=== PATIENT | female | born 1940 | race Caucasian/White ===

== ENCOUNTER → 2023-07-12 06:35 | Outpatient (REF) | payer MEDICARE, BC, SELFPAY ==
[2023-07-12 07:13] LABS: % Basophils 0.6 % (0-2); % Eosinophils 1.3 % (0-6); % Immature Granulocytes 0.1 % (0-0.5); % Lymphocytes 18.3 % (20.5-51.1); % Monocytes 5.6 % (1.7-9.3); % Neutrophils 74.1 % (42.2-75.2); Absolute Eosinophils 0.1 10^3/uL (0-0.7); Absolute Lymphocytes 1.3 10^3/uL (1.2-3.4); Absolute Monocytes 0.4 10^3/uL (0.1-0.6); Absolute Neutrophils 5.1 10^3/uL (1.4-6.5); Hematocrit 41.6 % (37.0-47.0); Hemoglobin 13.8 g/dL (12.0-16.0); Mean Corp Hgb Conc. 33.2 g/dL (33.0-37.0); Mean Corpuscular Hgb 29.1 pg (27.0-31.0); Mean Corpuscular Volume 87.8 fL (81.0-99.0); Mean Platelet Volume 10.1 fL (7.4-10.4); Nucleated Red Blood Cells % 0 %; Platelet Count 179 10^3/uL (130-400); Red Blood Cell Count 4.74 10^6/uL (4.20-5.40); Red Cell Dist. Width 15.3 % (11.5-14.5); White Blood Cell Count 6.8 10^3/uL (4.8-10.8)
[2023-07-12 07:47] LABS: ALT (SGPT) 24 U/L (0-35); AST (SGOT) 27 U/L (14-36); Alkaline Phosphatase 89 U/L (38-126); Blood Urea Nitrogen 18 mg/dl (7-17); Calcium 9.3 mg/dl (8.4-10.2); Carbon Dioxide 29 mmol/L (22-30); Chloride 103 mmol/L (98-107); Glucose 94 mg/dl (70-99); HDL Cholesterol 57 mg/dl; LDL Cholesterol, Calculated 71 mg/dl; Sodium 140 mmol/L (135-145); Total Bilirubin 0.6 mg/dl (0.2-1.3); Total Cholesterol 153 mg/dl (50-199); Total Protein 6.5 g/dl (6.3-8.2); Triglyceride 125 mg/dl (10-149); Very Low Density Lipoprotein 25 mg/dl (0-30); eGFR > 60.00
== END ==
LOC: REG 06:35
PROVIDERS: ATTENDING PHYSICIAN Family Medicine
DX: E78.00 Pure hypercholesterolemia, unspecified (principal); R53.83 Other fatigue; D64.9 Anemia, unspecified; Z68.27 Body mass index [BMI] 27.0-27.9, adult; M85.80 Other specified disorders of bone density and structure, unspecified site; Z00.00 Encounter for general adult medical examination without abnormal findings; D50.9 Iron deficiency anemia, unspecified
CPT/HCPCS: 36415; 80053; 80061; 85025

== ENCOUNTER 2023-08-01 07:59 | Inpatient (IN) | payer MEDICARE, BC, SELFPAY ==
[2023-07-30 15:57] VITALS: BP 154/87
[2023-07-30 16:17] LABS: % Basophils 0.4 % (0-2); % Eosinophils 0.5 % (0-6); % Immature Granulocytes 0.2 % (0-0.5); % Lymphocytes 11.4 % (20.5-51.1); % Neutrophils 82.5 % (42.2-75.2); Absolute Monocytes 0.4 10^3/uL (0.1-0.6); Absolute Neutrophils 6.9 10^3/uL (1.4-6.5); Hematocrit 39.4 % (37.0-47.0); Hemoglobin 12.8 g/dL (12.0-16.0); Mean Corp Hgb Conc. 32.5 g/dL (33.0-37.0); Mean Corpuscular Hgb 28.8 pg (27.0-31.0); Mean Corpuscular Volume 88.7 fL (81.0-99.0); Mean Platelet Volume 9.7 fL (7.4-10.4); Nucleated Red Blood Cells % 0 %; Platelet Count 167 10^3/uL (130-400); Red Blood Cell Count 4.44 10^6/uL (4.20-5.40); Red Cell Dist. Width 15.6 % (11.5-14.5); White Blood Cell Count 8.4 10^3/uL (4.8-10.8)
[2023-07-30 17:21] LABS: ALT (SGPT) 23 U/L (0-35); AST (SGOT) 29 U/L (14-36); Albumin 3.9 g/dl (3.5-5.0); Alkaline Phosphatase 90 U/L (38-126); Blood Urea Nitrogen 22 mg/dl (7-17); Calcium 9.4 mg/dl (8.4-10.2); Carbon Dioxide 24 mmol/L (22-30); Chloride 109 mmol/L (98-107); Glucose 104 mg/dl (70-99); Sodium 135 mmol/L (135-145); Total Bilirubin 0.7 mg/dl (0.2-1.3); Total Protein 6.3 g/dl (6.3-8.2); eGFR > 60.00
--- NOTE | 2023-07-30 17:51 | ED.GENMED ---
History of Present Illness
General
Chief Complaint: Musculo-Skeletal Complaint
Source: patient
Exam Limitations: none
Time Seen by Provider: 07/30/23 17:30
Nursing documentation reviewed up to this point in time: agreed with
Travel History
Have you had any contact with someone who has COVID-19?: No
Do you have any symptoms of coronavirus? Fever > 100 degrees, chills, cough, shortness of breath, sore throat, loss of taste or smell, muscle aches, or headache?: No
History of Present Illness
History of Present Illness:
The patient is an 82-year-old female who reports severe pain in her bilateral lower extremities, primarily in the knee areas but radiating up towards her thigh and down along the inner aspects of her lower legs. Patient reports the right is worse
than the left. She reports she started noticing the spasming pain in the right leg about 3 weeks ago. She has not been experiencing it just for a few days in the left side. Patient arrives screaming in pain and reporting severe spasming in her
legs at rest. She reports that when she gets up and walks the pain improves. Patient denies back pain. She denies weakness and numbness of the legs. She has had bilateral knee replacement surgery in the past. She denies injury.
Past History
Past History
ED Past Medical History: Cancer, Hypercholesterolemia and Other (DVT/ PE)
ED Past Surgical History: Orthopedic
Social History
Tobacco: Non-smoker
Alcohol: Other
Drug: None
Personal:
Living: with family
Employment: Other
Family History
Family History: Other
Review of Systems
Review of Systems
Allergies reviewed?: Yes
Other source history: family
All Other Systems: ROS reviewed and negative except as documented in HPI and ROS
Constitutional: Reports no symptoms
EENT: Reports no symptoms
Respiratory: Reports no symptoms
Cardiac: Reports no symptoms
ABD/GI: Reports no symptoms
: Reports no symptoms
Musculoskeletal: Reports muscle pain and muscle stiffness
Skin: Reports no symptoms
Neurological: Reports no symptoms
Endocrine: Reports no symptoms
Hematologic/Lymphatic: Reports no symptoms
Psychiatric: Reports no symptoms
Phy Exam
Physical Exam
Physical Exam:
Physical Exam
General: Patient is awake but screaming that she wright cramping in her bilateral legs
Neck: supple. no meningeal signs. normal posterior pharynx
Heart: s1/s2 regular rate and rhythm, no murmur. equal radial pulses.
Lungs: no acute respiratory distress. clear bilaterally
Abdomen: normal bowel sounds. not tender. no CVAT
Neuro: alert and oriented. no focal neurological deficits. 5 out of 5 strength in all extremities. No saddle anesthesia
Skin: no rash. No redness or fluctuation of skin of bilateral lower extremities
Psychiatric: well kept. interactive and cooperative
Extremities: no edema. No deformity. Bounding femoral artery pulses bilaterally. Right lower extremity feels cooler than left. Strong pulses left foot. Right pulses weaker in foot but easily heard by Doppler
Course
Orders/Labs/Results
Orders:
Orders
07/30/23 16:11
Complete Blood Count/With Diff Urgent
Comprehensive Metabolic Panel Urgent
07/30/23 17:49
HYDROmorphone [Dilaudid] 0.5 mg IV NOW STA
07/30/23 17:57
Ondansetron Injectable [Zofran] 4 mg IV NOW STA
07/30/23 17:58
Ondansetron Injectable [Zofran] 4 mg .ROUTE .STK-MED ONE
07/30/23 18:02
CT Abd Aorta Angio W/ Run Off Urgent
Comment:
Reason For Exam: severe bilaeral leg spasming
07/30/23 18:17
PTT Urgent
Prothrombin Time Urgent
07/30/23 19:28
HYDROmorphone [Dilaudid] 0.5 mg IV NOW STA
Abnormal Lab Results
07/30/23
16:11
MCHC 32.5 L g/dL
(33.0-37.0)
RDW 15.6 H %
(11.5-14.5)
Absolute Neuts (auto) 6.9 H 10^3/uL
(1.4-6.5)
Absolute Lymphs (auto) 1.0 L 10^3/uL
(1.2-3.4)
Neutrophils % 82.5 H %
(42.2-75.2)
Lymphocytes % 11.4 L %
(20.5-51.1)
Chloride 109 H mmol/L
(98-107)
BUN 22 H mg/dl
(7-17)
Glucose 104 H mg/dl
(70-99)
07/30/23 16:11
07/30/23 16:11
Vital Signs
Initial and Last Documented VS:
Initial Vital Signs
Temp Pulse Resp BP Pulse Ox
98.2 F 74 16 154/87 98
07/30/23 15:57 07/30/23 15:57 07/30/23 15:57 07/30/23 15:57 07/30/23 15:57
Last Documented Vital Signs
Temp Pulse Resp BP Pulse Ox
98.2 F 78 15 126/73 95
07/30/23 15:57 07/30/23 22:00 07/30/23 22:00 07/30/23 18:23 07/30/23 18:22
MDM/Problems Addressed
Differential Diagnosis Includes:
Acute arterial thrombosis, DVT, spinal stenosis
MDM/Problems Addressed:
Patient presents with acute severe pain down both legs
*Radiology
Radiology exam reviewed: radiology read reviewed
*Pulse Oximetry
Patient hypoxic: no
*EKG
Interpreted by ED Provider?: NA
*Date Night Caregiver Interpretation
Rate: normal
Interpretation: normal
Rhythm: sinus
*Critical Care Note
Total Time (30-74mins, 75-104mins- exclusive of procedures): Not Applicable
Data Reviewed
Review of Other/Old Records Reveals: Discharge Summary (Discharge summary reviewed from 05/26/2020 patient was admitted for right shoulder surgery)
Source: patient and family (2 daughters, son)
Patient Management
Escalation/DeEscalation of care consider admission/obs:
Patient lives alone and is still having severe bilateral knee pain. CTA does not suggest arterial etiology. Patient may have severe neuropathic pain/spinal stenosis.
ED Attending Note
-
Portions of this chart may have been created with voice recognition software.� Occasional wrong word or��sound alike� substitutions may have occurred due to the inherent limitations of voice recognition software.
Discharge Plan
Departure
Patient Disposition: Admit
Date of Disposition: 07/30/23
Time of Disposition: 21:53
Admit to: Med/Surg
Presentation/result/management discussed w/ accepting MD/DO: Hospitalist
Patient with high blood pressure during this ER visit?: Yes
Condition: Good
Covid-19: Not Applicable
Discharge Problem:
Acute bilateral knee pain
Prescriptions:
No Action
lovastatin 40 MG tablet
40 mg PO QPM
magnesium 250 MG tablet
250 mg PO HS
cranberry 400 mg Capsule
400 mg PO HS Qty: 0
multivitamin with folic acid [Tab-A-Tuan] 1 TABLET tablet
1 tab PO HS
aspirin 81 mg Tablet,Delayed Release (Dr/Ec)
81 mg PO DAILY
calcium carbonate [Calcium 500] 500 mg calcium (1,250 mg) Tablet
500 mg PO DAILY
cholecalciferol (vitamin D3) [Vitamin D3] 25 mcg (1,000 unit) Tablet
25 mcg PO DAILY
Referrals:
NONE,* [Active] -
Interventions
Interventions:
*Risk Screen - Suicide Last Done: 07/30/23 18:08
*General Assessment Last Done: 07/30/23 18:08
*Neglect/Abuse Screening Last Done: 07/30/23 18:08
ED- Fall Risk Assessment Last Done: 07/30/23 18:08
*ED COVID-19 Vaccine History Last Done: 07/30/23 15:57
ED-Musculoskeletal Assessment Last Done: 07/30/23 18:08
[2023-07-30] MEDS: DILAUDID 0.5 MG IV ×2 (17:57→19:32)
[2023-07-30] MEDS: ZOFRAN 4 MG IV (18:00)
[2023-07-30 18:08] VITALS: BMI 27.3
[2023-07-30 18:22] VITALS: BP 126/73
[2023-07-30 18:23] VITALS: BP 126/73
[2023-07-30 18:47] LABS: INR 1.12; PT 14.3 Sec (11.4-14.6)
[2023-07-30 18:48] LABS: APTT 32.1 Sec (23.4-35.0)
--- NOTE | 2023-07-30 22:09 | HPS.HSE ---
Addendum entered and electronically signed by Devyn Morales MD 07/30/23 23:38:
Patient seen and examined independently with CORPORATE TRAFFIC MANAGER. 82-year-old female with past medical history of osteoarthritis of bilateral knees status post bilateral knee replacement 2016, breast cancer, DVT/PE, hiatal hernia, uterine prolapse presenting with 1
week of severe right lower extremity pain. Pain extremely severe and worse at nighttime and worst in the right knee with some radiation up the thigh as well as down the calf. Pain better with ambulation. No recent trauma or falls.
Over the past few days he has also started to develop left lower extremity pain involving the left hip but is not as severe.
On examination patient in severe intractable pain with movement. CTA abdomen and pelvis with runoff with no abnormalities. Unclear etiology of pain but could be neuropathic pain/due to restless leg syndrome versus muscle spasms. No lower back pain
or right hip pain to suggest lumbar radiculopathy. IV Dilaudid was given without improvement. Continue tylenol, as needed Valium. Consider MRI of right knee.
Original Note:
Family Physician
-
Family Physician: Tatiana Khan
Chief Complaint
-
Right leg spasms right and left knee pain
History of Present Illness
82-year-old female complaining of spasm pain in the right leg for approximately 1 weeks then has radiated to the left side. She reports spasm with cramps in her right inner thigh, right anterior calf, right lower calf. She also reports that
occasionally goes to the left side. She denies any injury, fall, back pain, buttocks pain, swelling to legs. She reports when she sits for a prolonged period of time she starts to develop pain in her legs and she needs to get up and walk in her
apartment. Her daughter states over the past 6 months she has to lift her legs into the car due to pain. She denies injury, back pain, incontinence urine or stool, fever, chills, chest pain, palpitations, shortness of breath, cough, abdominal
pain, nausea, vomit, diarrhea, urinary symptoms. She he has past medical history of bilateral knee replacement by Dr. Schuler 2015, osteoarthritis bilateral knees, osteopenia, HLD, diverticulosis, right-sided breast cancer with radiation, DVT/PE
phlebitis, varicose veins, hiatal hernia, urinary frequency secondary to uterine prolapse, [place].
Medical History
Past Medical History
Past Medical History: Reports Other
Additional Past Medical History:
bilateral knee replacement by Dr. Schuler 2015
osteoarthritis bilateral knees
osteopenia
HLD
diverticulosis
right-sided breast cancer with radiation
DVT/PE phlebitis
varicose veins
hiatal hernia
urinary frequency secondary to uterine prolapse, [place].
Past Surgical History: Reports Other
Additional Past Surgical History:
Bilateral knee replacement Dr. Schuler in 2015
Squamous cell CA left forearm
Right lumpectomy 11/23/2013
Cholecystectomy
Varicose vein stripping 1966
Abdominal colposuspension with mesh, supracervical abdominal hysterectomy, bilateral salpingo-oophorectomy May 2014
Right reverse total shoulder arthroplasty 06/03/2019
Social History
Tobacco: Non-smoker
Alcohol: None
Drug: None
Personal: Single
Living: Alone
Employment: Retired
Family History
Family History: Other (Father history NE mother history age 95 Alzheimer's)
Allergies / Home Medications
Allergies reflects when Allergies were last updated in [facility].
Home Medications with original date entered in [facility]
Allergy/Medication List:
Allergies
Allergy/AdvReac Type Severity Reaction Status Date / Time
nitrofurantoin Allergy fever Verified 07/30/23 16:00
macrocrystalline
[From Macrobid]
oxycodone Allergy weakness Verified 07/30/23 22:27
Home Medications
lovastatin 40 mg tablet 40 mg PO QPM 05/27/14
magnesium 250 mg tablet 250 mg PO HS 05/27/14
cranberry 400 mg capsule 400 mg PO HS ##0 05/28/19
multivitamin with folic acid 400 mcg tablet (Tab-A-Tuan) 1 tab PO HS 05/28/19
aspirin 81 mg tablet,delayed release 81 mg PO DAILY 07/30/23
calcium carbonate 500 mg PO DAILY 07/30/23
cholecalciferol (vitamin D3) 25 mcg (1,000 unit) tablet (Vitamin D3) 25 mcg PO DAILY 07/30/23
Review of Systems
-
History Source: Patient and Family (Daughters at bedside)
A 12 point ROS was completed and negative except as noted: Yes
Constitutional: Denies Fever or Fatigue
EENT: Denies Sore Throat or Runny Nose
Respiratory: Denies Cough, Hemoptysis or Trouble Breathing
Cardiac: Denies Chest Pain, Diaphoresis, Palpitations or Syncope
Abdomen/GI: Denies Abdominal Pain, Nausea, Vomiting, Diarrhea, Constipated or Bloody Stools
: Denies Dysuria, Frequency, Flank Pain, Incontinence or Difficulty Voiding
Musculoskeletal: Reports Muscle Pain (Right anterior/middle thigh/right calf/left knee spasms with pain); Denies Joint Pain or Edema
Skin: Denies Itching or Rash
Neurological: Denies Dizzy, Headache, Weakness or Numbness
Endocrine: Reports No Symptoms
Hematologic/Lymphatic: Reports No Symptoms
Psych: Reports Anxiety
Physical Exam
Vital Signs
Vital Signs
Temp Pulse Resp BP Pulse Ox
98.2 F 78 15 126/73 95
07/30/23 15:57 07/30/23 22:00 07/30/23 22:00 07/30/23 18:23 07/30/23 18:22
Physical Exam
General: Conversant and Pain; No Fever or Chills
HEENT: NormoCephalic, Anicteric, PERRLA, [place] Conjunctivae and No Ptosis
Respiratory: Clear; No Wheezes, Rales or Rhonchi
Cardiac: S1/S2 and Regular Rhythm; No Murmur, Rub, Gallop or Peripheral Edema
Breast: Deferred by me
GI: Soft, Non Tender, Non Distended, Normal Bowel Sounds and No Hepatosplenomegaly
Rectal: Deferred by Provider
Genito-urinary: Deferred by me
Musculoskeletal: No Clubbing, No Cyanosis, No Edema and Other (Right anterior/middle thigh/right calf/left knee spasms with pain)
Skin: Warm and Dry; No Rash or Jaundice
Neuro: AO x 3, No Motor Deficits, Nonfocal/grossly intact, Cranial Nerves Intact and No Sensory Deficits; No Slurred Speech, Facial Droop or Tremors
Psych: Anxious
Laboratory Results
-
07/30/23 16:11
07/30/23 16:11
Laboratory Results
PT 14.3 Sec (11.4-14.6) 07/30/23 18:17
INR 1.12 07/30/23 18:17
APTT 32.1 Sec (23.4-35.0) 07/30/23 18:17
Total Bilirubin 0.7 mg/dl (0.2-1.3) 07/30/23 16:11
AST 29 U/L (14-36) 07/30/23 16:11
ALT 23 U/L (0-35) 07/30/23 16:11
Alkaline Phosphatase 90 U/L (38-126) 07/30/23 16:11
Impression/Plan
-
Impression/plan:
Observation MedSurg
#Right leg leg/thigh spasms with mild impairment left concern for possible restless leg syndrome
-IV Valium 2 mg now
-No relief with IV Dilaudid in ER
-valium 2 mg po tid prn spasm
-Mg level pending
-pt/ot case mgmt consult
CT abdomen angio with runoff:
1. Small to moderate partially calcified atherosclerotic plaque no significant stenosis
2. 2.5 cm left adrenal mass which may be adrenal adenoma
3. 1.9 cm calcific mass upper pole the right kidney, rim calcified 0.5 cm cystic mass of the upper pole of the left kidney
4. Cholecystectomy with moderate intrahepatic and extrahepatic biliary dilatation
#Hx bilateral knee replacements Dr. Schuler 2015
#Osteoarthritis bilateral knees
#Osteopenia
-Continue calcium carbonate plus vitamin D3
#Hypomagnesemia
-Check mag level
#HLD
Continue lovastatin
#Right-sided breast cancer with radiation only
#DVT/PE Hx
#History of phlebitis/varicose veins
#Urinary frequency secondary to urinary bladder prolapse
DVT prophylaxis
Subcu Lovenox
DNR
[2023-07-30] MEDS: VALIUM INJECTION 2 MG IV (22:36)
[2023-07-30 22:46] VITALS: BP 131/63
[2023-07-30 23:00] VITALS: BP 118/68
[2023-07-30 23:01] LABS: Magnesium 2.3 mg/dl (1.6-2.3)
[2023-07-30 23:53] VITALS: BMI 27.7
[2023-07-31 00:16] VITALS: BP 141/84
--- NOTE | 2023-07-31 00:30 | PTCARENOTE ---
Pt arrived to room 433-01. Pt transferred to bed from stretcher. Pt AAOx3, VSS. Pt screaming of right leg spasms, valium given before arrival to 4W. Pt in no other signs of acute distress. Pt seems to stop screaming and complaining of pain when left
alone. Pt oriented to room, call moncada placed within reach.
[2023-07-31] MEDS: VALIUM 2 MG PO (05:30)
[2023-07-31 06:00] VITALS: BMI 28.0
[2023-07-31 07:50] VITALS: BP 126/70
[2023-07-31] MEDS: MORPHINE SULFATE 2 MG IV (08:17)
[2023-07-31 08:22] LABS: % Basophils 0.2 % (0-2); % Eosinophils 0.3 % (0-6); % Immature Granulocytes 0.2 % (0-0.5); % Lymphocytes 11.4 % (20.5-51.1); % Monocytes 7.1 % (1.7-9.3); % Neutrophils 80.8 % (42.2-75.2); Absolute Monocytes 0.6 10^3/uL (0.1-0.6); Hematocrit 37.7 % (37.0-47.0); Hemoglobin 12.2 g/dL (12.0-16.0); Mean Corp Hgb Conc. 32.4 g/dL (33.0-37.0); Mean Corpuscular Hgb 28.6 pg (27.0-31.0); Mean Corpuscular Volume 88.5 fL (81.0-99.0); Mean Platelet Volume 10.4 fL (7.4-10.4); Nucleated Red Blood Cells % 0 %; Platelet Count 173 10^3/uL (130-400); Red Blood Cell Count 4.26 10^6/uL (4.20-5.40); Red Cell Dist. Width 15.6 % (11.5-14.5); White Blood Cell Count 8.7 10^3/uL (4.8-10.8)
[2023-07-31 08:43] LABS: Blood Urea Nitrogen 17 mg/dl (7-17); Calcium 8.8 mg/dl (8.4-10.2); Carbon Dioxide 26 mmol/L (22-30); Chloride 109 mmol/L (98-107); Estimated Creatinine Clearance 70 ml/min; Glucose 91 mg/dl (70-99); Potassium 3.8 mmol/L (3.5-5.1); Sodium 137 mmol/L (135-145); eGFR > 60.00
[2023-07-31] MEDS: VITAMIN D3 (cholecalciferol) 25 MCG PO (09:31)
[2023-07-31] MEDS: OSCAL CAL 500 500 MG PO (09:31)
[2023-07-31] MEDS: ASPIR LOW (ENTERIC COATED) 81 MG PO (09:31)
[2023-07-31] MEDS: DILAUDID 0.5 MG IV ×3 (12:01→22:03)
--- NOTE | 2023-07-31 12:13 | W.PN.HOSP.TC ---
Today's Communication/Plan
-
xray pending
pain control
flexeril
Assessment / Plan
Assessment / Plan
#Right leg leg/thigh spasms likely secondary to lumbar radiculopathy/stenosis versus restless leg syndrome
# Intermittent left leg spasms
-Patient currently refusing MRI
-Will start with bilateral knee x-rays and lumbar spine x-rays
-DC Valium start Flexeril
-Continue with pain control
-Evaluated by PT and OT
-Can try trial of steroids
#Hx bilateral knee replacements Dr. Schuler 2015
#Osteoarthritis bilateral knees
#Osteopenia
-Continue calcium carbonate plus vitamin D3
#Hypomagnesemia
-Replete and monitor
#HLD
Continue lovastatin
#Right-sided breast cancer with radiation only
#DVT/PE Hx
#History of phlebitis/varicose veins
#Urinary frequency secondary to urinary bladder prolapse
DVT prophylaxis
Subcu Lovenox
DNR
Discussed with daughter at bedside in detail
PT/OT-SNF once ready.
Anticipated Discharge: Within 24 hours
Subjective/Interval History
-
Date of Service: July 31, 2023
States of right knee pain radiation
extreme pain at times
Objective Data
-
Labs:
Laboratory Results
07/31/23
07:33
WBC 8.7
Hgb 12.2
Hct 37.7
Plt Count 173
Sodium 137
Potassium 3.8
Chloride 109 H
Carbon Dioxide 26
BUN 17
Creatinine 0.6
Glucose 91
Calcium 8.8
Vital Signs:
Vital Signs
Temp Pulse Resp BP Pulse Ox
97.6 F 80 16 126/70 98
07/31/23 07:50 07/31/23 07:50 07/31/23 07:50 07/31/23 07:50 07/31/23 08:00
I&O
07/30/23 07/31/23 08/01/23
06:59 06:59 06:59
Intake Total 60 / 60
Balance 60 / 60
Physical Exam
-
General: Well Developed and No Apparent Distress
HEENT: Normocephalic, Atraumatic and Moist Mucous Membranes
Respiratory: Clear to Auscultation
Cardiac: Regular Rhythm and S1/S2; Negative Murmur, Rub or Gallop
GI: Soft, Nontender, Nondistended and Normal Bowel Sounds; Negative Organomegaly
Rectal: Deferred by Provider
Musculoskeletal: No Clubbing, No Cyanosis, No Edema and Other (b/l knee scar from prior surgery noted. no swelling/edema. )
Skin: Negative Rash
Neuro: Awake, No Motor Deficits and Nonfocal/Grossly Intact
Psych: Calm
--- NOTE | 2023-07-31 13:20 | CM ---
outside sales manager reviewed patient's chart and met with patient and patient was admitted under OBS, [facility] letter provided to patient. Patient states that she lives alone in a multilevel home, patient is independent with adl's and has recently started
using a walker, patient states she has 3 daughters living in the area who are supportive, physical therapy are recommending skilled placement. Will review skilled placement options under [facility] Waiver program to see if patient qualifies.
Pharmacy: [facility]
PCP: Dr. Khan
Plan; To follow up with patient progress with physical therapy.
[2023-07-31 15:55] VITALS: BP 139/62
[2023-07-31] MEDS: LOVENOX 40 MG SC (17:16)
[2023-07-31] MEDS: LIPITOR 10 MG PO (17:16)
[2023-07-31] MEDS: THERAGRAN 1 TABLET PO (22:03)
[2023-07-31] MEDS: MAG-TAB SR 84 MG PO (22:03)
[2023-07-31 23:00] VITALS: BP 135/69
--- NOTE | 2023-08-01 03:36 | DOWNTIME ---
There was a [employer] Downtime on 08/01/2023 from 0100 to 08/01/2023 at 0322. Downtime documentation of patient's care, including medication administrations, has been reconciled in the electronic record per guidelines. Refer to the
patient's paper chart under the miscellaneous tab to see printed paper medication records and downtime forms.
[2023-08-01 06:00] VITALS: BMI 27.3
[2023-08-01 07:55] VITALS: BP 139/82
[2023-08-01] MEDS: FLEXERIL 5 MG PO (09:45)
[2023-08-01] MEDS: VITAMIN D3 (cholecalciferol) 25 MCG PO (09:46)
[2023-08-01] MEDS: OSCAL CAL 500 500 MG PO (09:46)
[2023-08-01] MEDS: ASPIR LOW (ENTERIC COATED) 81 MG PO (09:46)
--- NOTE | 2023-08-01 10:29 | W.PN.HOSP.TC ---
Addendum entered and electronically signed by Miguel Angel Bass MD 08/01/23 15:57:
Discussed with patient's son Moriah over the phone in details. Plan will be to obtain MRI of the lumbar and right knee. Family also concerned outpatient psychological held as patient lost her 5 months ago. Will continue to monitor
mentation closely.
Original Note:
Today's Communication/Plan
-
PT/OT re-eval
CM for dispo planning
miralax
Assessment / Plan
Assessment / Plan
#Right leg leg/thigh spasms likely secondary to lumbar radiculopathy/stenosis versus restless leg syndrome
# Intermittent left leg spasms
-Patient currently refusing MRI
-Knee B/L xray with Bilateral knee arthroplasties in position. There is no fracture, dislocation or focal cortical bony destructive process.
-Lumbar Xray-Degenerative changes and probable diffuse osteopenia. There is Grade I anterolisthesis of L3 on L4 and to a lesser extent L4 on L5, likely degenerative. No findings to suggest lumbar vertebral compression fracture.
-DC Valium start Flexeril
-Continue with pain control
-re-eval by PT/OT if possible today.
-Pt wants to return [facility]?
-CM for dispo plan
#Hx bilateral knee replacements Dr. Schuler 2015
#Osteoarthritis bilateral knees
#Osteopenia
-Continue calcium carbonate plus vitamin D3
#Hypomagnesemia
-Replete and monitor
#HLD
Continue lovastatin
#Right-sided breast cancer with radiation only
#DVT/PE Hx
#History of phlebitis/varicose veins
#Urinary frequency secondary to urinary bladder prolapse
DVT prophylaxis
Subcu Lovenox
DNR
Discussed with daughter at bedside in detail on 07/30.
Anticipated Discharge: Today
Subjective/Interval History
-
Date of Service: August 01, 2023
states resolution of back pain.
walked with her son yesterday in the hallway
denies leg spasms
sitting in chair
in good spirits
Objective Data
-
Vital Signs:
Vital Signs
Temp Pulse Resp BP Pulse Ox
98.2 F 81 16 139/82 97
08/01/23 07:55 08/01/23 07:55 08/01/23 07:55 08/01/23 07:55 08/01/23 07:55
I&O
07/31/23 08/01/23 08/02/23
06:59 06:59 06:59
Intake Total 60 60 0 216
Balance 60 / 60 2159 / 216
Physical Exam
-
General: Well Developed and No Apparent Distress
HEENT: Normocephalic, Atraumatic and Moist Mucous Membranes
Respiratory: Clear to Auscultation
Cardiac: Regular Rhythm and S1/S2; Negative Murmur, Rub or Gallop
GI: Soft, Nontender, Nondistended and Normal Bowel Sounds; Negative Organomegaly
Rectal: Deferred by Provider
Musculoskeletal: No Clubbing, No Cyanosis, No Edema and Other (b/l knee scar from prior surgery noted. no swelling/edema. )
Skin: Negative Rash
Neuro: Awake, No Motor Deficits and Nonfocal/Grossly Intact
Psych: Calm
[2023-08-01] MEDS: TYLENOL 650 MG PO ×2 (11:40→18:38)
[2023-08-01] MEDS: MIRALAX 17 GRAMS PO (11:41)
[2023-08-01] MEDS: ATIVAN 0.5 MG PO (14:39)
[2023-08-01 16:30] VITALS: BP 128/57
[2023-08-01 17:28] VITALS: BP 128/57
[2023-08-01] MEDS: LOVENOX 40 MG SC (18:38)
[2023-08-01] MEDS: LIPITOR 10 MG PO (18:38)
[2023-08-01] MEDS: MAG-TAB SR 84 MG PO (22:48)
[2023-08-01] MEDS: THERAGRAN 1 TABLET PO (22:48)
[2023-08-01 23:39] VITALS: BP 137/78
[2023-08-02] MEDS: COLACE 100 MG PO (00:34)
--- NOTE | 2023-08-02 00:52 | PTCARENOTE ---
Pt reports several episodes of small hard bowel movements after about 10 trips to the bathroom with assistance tonight. Pt tearful at this time. House HAZARD WASTE HANDLER Sylvia Jones notified, order placed for colace BID PRN and given to pt. Will continue
to monitor.
[2023-08-02 05:18] VITALS: BMI 27.7
--- NOTE | 2023-08-02 11:07 | W.PN.HOSP.TC ---
Today's Communication/Plan
-
hold laxatives
stop dilaudid
tylenol
ice pack
Assessment / Plan
Assessment / Plan
#Right leg leg/thigh spasms likely secondary to lumbar radiculopathy/stenosis and myalagia
# Intermittent left leg spasms
- MRI R knee and MR L spine noted
-DC Valium start Flexeril prn
-Continue with pain control tylenol
-ICE pack for lower back
-Stop dilaudid
-Home PT/OT/VN on dc
-CM for dispo plan
#Hx bilateral knee replacements Dr. Schuler 2015
#Osteoarthritis bilateral knees
#Osteopenia
-Continue calcium carbonate plus vitamin D3
-Has appt with Dr. Schuler on 08/06.
#Constipation and now with most likely overflow diarrhea
-received only 1 dose of miralax
-family concern for loose stools.
-hold further laxative.
#Hypomagnesemia
-Replete and monitor
#HLD
Continue lovastatin
#Right-sided breast cancer with radiation only
#DVT/PE Hx
#History of phlebitis/varicose veins
#Urinary frequency secondary to urinary bladder prolapse
DVT prophylaxis
Subcu Lovenox
DNR
Discussed with daughter at bedside in detail and another daughter over the phone on 08/01
D/w with 2 sons over the phone on 07/31
Dispo-stop narcs. laxative. ice pack. Tylenol
Anticipated Discharge: Within 24 hours
Subjective/Interval History
-
Date of Service: August 02, 2023
walking to bathroom with walker
no back pain
states of loose stools
Objective Data
-
Vital Signs:
Vital Signs
Temp Pulse Resp BP Pulse Ox
98.4 F 94 18 137/78 97
08/01/23 23:39 08/01/23 23:39 08/01/23 23:39 08/01/23 23:39 08/01/23 23:39
I&O
08/01/23 08/02/23 08/03/23
06:59 06:59 06:59
Intake Total 2159 / 0 1620 / 1620
Balance 0 / 2160 1620 / 1620
Physical Exam
-
General: Well Developed and No Apparent Distress
HEENT: Normocephalic, Atraumatic and Moist Mucous Membranes
Respiratory: Clear to Auscultation
Cardiac: Regular Rhythm and S1/S2; Negative Murmur, Rub or Gallop
GI: Soft, Nontender, Nondistended and Normal Bowel Sounds; Negative Organomegaly
Rectal: Deferred by Provider
Musculoskeletal: No Clubbing, No Cyanosis, No Edema, Normal Gait & Station (walking with walker without any difficulty ) and Other (b/l knee scar from prior surgery noted. no swelling/edema. )
Skin: Negative Rash
Neuro: Awake, No Motor Deficits and Nonfocal/Grossly Intact
Psych: Calm
Data Reviewed
-
Total Time Spent with Patient (in minutes): 55
[2023-08-02] MEDS: VITAMIN D3 (cholecalciferol) 25 MCG PO (12:14)
[2023-08-02] MEDS: ASPIR LOW (ENTERIC COATED) 81 MG PO (12:14)
--- NOTE | 2023-08-02 12:14 | CM ---
manager report reviewed patient's chart and updated physical therapy notes and patient did really well with physical therapy and plan is for patient to return to home when stable with visiting nurses, visiting nurse options were reviewed and patient
has selected [facility]. [facility] liaison contacted.
Plan; Home with [facility] and then transition to outpatient PT/OT at [facility] ([facility] is really close to patient's home she can walk there).
--- NOTE | 2023-08-02 13:19 | VNURNOTE ---
Home Health Liaison met with patient at 1215 to discuss [facility] nurse/therapy, visits, schedule and homebound status. Patient is agreeable and understands that visits at home will be 2-3 x per week to assess and teach medical management.
[facility] brochure provided with contact information. Patient is aware that [facility] will contact her for start of care in 1-2 days after discharge from .
[facility] referral completed in [facility].
[2023-08-02] MEDS: IMODIUM 4 MG PO (13:38)
[2023-08-02] MEDS: OSCAL CAL 500 500 MG PO (13:38)
[2023-08-02 14:19] VITALS: BP 136/80; PULSE 89; O2SAT 98
[2023-08-02 15:26] VITALS: BP 131/78
[2023-08-02] MEDS: LIPITOR 10 MG PO (17:42)
[2023-08-02] MEDS: LOVENOX 40 MG SC (17:42)
[2023-08-02] MEDS: THERAGRAN 1 TABLET PO (22:18)
[2023-08-02] MEDS: MAG-TAB SR 84 MG PO (22:18)
[2023-08-02 23:26] VITALS: BP 140/71
[2023-08-03 06:00] VITALS: BMI 27.4
[2023-08-03 07:00] VITALS: BP 122/74
[2023-08-03] MEDS: ASPIR LOW (ENTERIC COATED) 81 MG PO (08:52)
[2023-08-03] MEDS: OSCAL CAL 500 500 MG PO (08:52)
[2023-08-03] MEDS: VITAMIN D3 (cholecalciferol) 25 MCG PO (08:52)
--- NOTE | 2023-08-03 12:04 | W.PN.HOSP.TC ---
Today's Communication/Plan
-
dc home
OP therapy
Assessment / Plan
Assessment / Plan
#Right leg leg/thigh spasms likely secondary to lumbar radiculopathy/stenosis and myalagia
# Intermittent left leg spasms
- MRI R knee and MR L spine noted
-DC Valium start Flexeril prn
-Continue with pain control tylenol
-ICE pack for lower back
-Stop dilaudid
-Home PT/OT/VN on dc
-CM for dispo plan
#Hx bilateral knee replacements Dr. Schuler 2015
#Osteoarthritis bilateral knees
#Osteopenia
-Continue calcium carbonate plus vitamin D3
-Has appt with Dr. Schuler on 08/06.
#Constipation and now with most likely overflow diarrhea
-received only 1 dose of miralax
-resolved. Tolerating diet. No nausea or vomiting.
#Hypomagnesemia
-Replete and monitor
#HLD
Continue lovastatin
#Right-sided breast cancer with radiation only
#DVT/PE Hx
#History of phlebitis/varicose veins
#Urinary frequency secondary to urinary bladder prolapse
DVT prophylaxis
Subcu Lovenox
DNR
Dispo-home with VN. OP orth f/u next week.
More than 30 minutes spent in discharge including
Final examination of the patient
Summarizing hospital stay
Instructions for continuing care to all relevant caregivers
Preparation of discharge records, prescriptions, and referral forms
Total time spent (in minutes): 45
Anticipated Discharge: Today
Subjective/Interval History
-
Date of Service: August 03, 2023
states diarrhea resolved
states she talk to her about mri results
denies spasms
ambulating
states had good breakfast
Objective Data
-
Vital Signs:
Vital Signs
Temp Pulse Resp BP Pulse Ox
98.0 F 80 18 122/74 97
08/03/23 07:00 08/03/23 07:00 08/03/23 07:00 08/03/23 07:00 08/03/23 07:00
I&O
08/02/23 08/03/23 08/04/23
06:59 06:59 06:59
Intake Total 1620 / 1620 60 / 60 480 / 480
Balance 1620 / 1620 60 / 60 480 / 480
Physical Exam
-
General: Well Developed and No Apparent Distress
HEENT: Normocephalic, Atraumatic and Moist Mucous Membranes
Respiratory: Clear to Auscultation
Cardiac: Regular Rhythm and S1/S2; Negative Murmur, Rub or Gallop
GI: Soft, Nontender, Nondistended and Normal Bowel Sounds; Negative Organomegaly
Rectal: Deferred by Provider
Musculoskeletal: No Clubbing, No Cyanosis, No Edema and Other (b/l knee scar from prior surgery noted. no swelling/edema. )
Skin: Negative Rash
Neuro: Awake, Alert, Oriented, AO x 3, No Motor Deficits and Nonfocal/Grossly Intact
Psych: Calm
[2023-08-03] MEDS: TYLENOL 650 MG PO (12:42)
[2023-08-03] MEDS: FLEXERIL 5 MG PO (12:42)
--- NOTE | 2023-08-03 14:19 | W.DCSUMMARY ---
Discharge Summary
Discharge Data
Date of Admission: 08/01/23
Date of Discharge: 08/03/23
-
Pending Results: No
Hospital Course
82 female past medical history of bilateral knee replacement, osteoarthritis, osteopenia, hyperlipidemia, is presenting from home with right lower extremity spasms. Patient with significant pain and required IV Dilaudid. Patient was admitted to
the hospital. Patient underwent x-ray of the knee which was unremarkable. Patient with x-ray of the lumbar spine with osteoarthritis. 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
degenerative disc disease with multilevel disc bulges and facet arthrosis superimposed upon a mild lumbar dextroscoliosis. Mild to moderate spinal canal stenosis at L3-L4. Varying degrees of chronic multilevel bilateral neuroforaminal stenosis, as
detailed above. Bilateral iliopsoas intramuscular edema, left greater than right. This finding is nonspecific and incompletely included in the [id number] on the current exam. o MRI evidence for complication of the right total knee arthroplasty
within the limitations of susceptibility artifact. Patient was taken off IV narcotics. Patient was started on Tylenol and Flexeril. Patient was eval by physical and Occupational Therapy. Patient was seen by therapy multiple times. Patient with
significant improvement in spasms and was able to ambulate with a walker. Patient at constipation received a dose of MiraLAX. Subsequently afterwards had multiple bowel movements which improved. Patient was tolerating diet. Patient be discharged
home with outpatient follow-up. Patient rehas appointment orthopedic with Dr. Clark next week. Recommended to keep the appointment. Patient course was discussed with patient multiple sons and daughter throughout hospitalization.
Discharge Plan
-
Patient Disposition: Home with Home Care
Discharge Diagnosis/Procedures: Right leg leg/thigh spasms likely secondary to lumbar radiculopathy/stenosis and myalagia
Condition: Fair
Diet: As tolerated
Activity: With assistance and As tolerated
Driving Restrictions: Not until seen by your Dr
Other Services: VN
Referrals:
Cabrera Schuler MD [Active] - None (keep your appointment for next week. )
Tatiana Khan MD [Family Provider] - in less than 1 week
Prescriptions:
New
acetaminophen [Tylenol] 325 mg capsule
650 mg PO TID @ 0800,1200,1700 Qty: 30 0RF
cyclobenzaprine 10 mg Tablet
5 mg PO BIDPRN PRN (Reason: muscle spasms) Qty: 10 0RF
Continued
lovastatin 40 MG tablet
40 mg PO QPM
magnesium 250 MG tablet
250 mg PO HS
cranberry 400 mg Capsule
400 mg PO HS Qty: 0
multivitamin with folic acid [Tab-A-Tuan] 1 TABLET tablet
1 tab PO HS
aspirin 81 mg Tablet,Delayed Release (Dr/Ec)
81 mg PO DAILY
calcium carbonate 500 mg calcium (1,250 mg) Tablet
500 mg PO DAILY
cholecalciferol (vitamin D3) [Vitamin D3] 25 mcg (1,000 unit) Tablet
25 mcg PO DAILY
Discharge Orders:
Discharge Patient (As Directed); Ordered 08/03/23
Ordered By: Miguel Angel Bass
Discharge Date and Time
Print Language: BENGALI
[2023-08-03 14:44] VITALS: BP 127/59
== END 2023-08-03 15:46 | disposition home health service (06) | DRG 552 ==
LOC: 4 WEST ACU 07:59
PROVIDERS: Clinical Nurse Specialist Family Health; Emergency Medicine; ADMITTING PHYSICIAN Hospitalist; ATTENDING PHYSICIAN Hospitalist; EMERGENCY PHYSICIAN Emergency Medicine; FAMILY PHYSICIAN Family Medicine
DX: M47.26 Other spondylosis with radiculopathy, lumbar region (principal); M85.80 Other specified disorders of bone density and structure, unspecified site; M17.0 Bilateral primary osteoarthritis of knee; E83.42 Hypomagnesemia; Z66 Do not resuscitate; E78.00 Pure hypercholesterolemia, unspecified; K59.00 Constipation, unspecified
CPT/HCPCS: 72110; 72148; 73564; 73721; 75635; 80048; 80053; 83735; 85025; 85610; 85730; 96374; 96375; 96376; 97116; 97163; 97166; 97530; 99285; Q9967

== ENCOUNTER → 2023-09-24 13:42 | Outpatient (REF) | payer MEDICARE, BC, SELFPAY | LOC: WDC 13:42 | PROVIDERS: ATTENDING PHYSICIAN Family Medicine | DX: Z12.31 Encounter for screening mammogram for malignant neoplasm of breast (principal) | CPT/HCPCS: 77063; 77067 ==

== ENCOUNTER → 2023-11-26 14:19 | Outpatient (REF) | payer MEDICARE, BC, SELFPAY | LOC: WDC 14:19 | PROVIDERS: ATTENDING PHYSICIAN Family Medicine | DX: R92.8 Other abnormal and inconclusive findings on diagnostic imaging of breast (principal) | CPT/HCPCS: 76642 ==

== ENCOUNTER → 2024-05-29 14:00 | Outpatient (REF) | payer MEDICARE, BC, SELFPAY | LOC: WDC 14:00 | PROVIDERS: ATTENDING PHYSICIAN Family Medicine | DX: R92.8 Other abnormal and inconclusive findings on diagnostic imaging of breast (principal) | CPT/HCPCS: 76642 ==

== ENCOUNTER → 2024-09-09 06:32 | Outpatient (REF) | payer MEDICARE, BC, SELFPAY ==
[2024-09-09 07:22] LABS: ALT (SGPT) 20 U/L (0-35); AST (SGOT) 23 U/L (14-36); Albumin 4.2 g/dl (3.5-5.0); Alkaline Phosphatase 96 U/L (38-126); Blood Urea Nitrogen 16 mg/dl (7-17); Carbon Dioxide 25 mmol/L (22-30); Chloride 108 mmol/L (98-107); Glucose 97 mg/dl (70-99); HDL Cholesterol 53 mg/dl; LDL Cholesterol, Calculated 81 mg/dl; Potassium 4.1 mmol/L (3.5-5.1); Sodium 141 mmol/L (135-145); Total Bilirubin 0.8 mg/dl (0.2-1.3); Total Cholesterol 161 mg/dl (50-199); Total Protein 6.5 g/dl (6.3-8.2); Triglyceride 137 mg/dl (10-149); Very Low Density Lipoprotein 27 mg/dl (0-30); eGFR > 60.00
== END ==
LOC: REG 06:32
PROVIDERS: ATTENDING PHYSICIAN Family Medicine
DX: E78.00 Pure hypercholesterolemia, unspecified (principal); Z86.000 Personal history of in-situ neoplasm of breast
CPT/HCPCS: 36415; 80053; 80061

== ENCOUNTER → 2024-11-06 12:55 | Outpatient (REF) | payer MEDICARE, BC, SELFPAY | LOC: WDC 12:55 | PROVIDERS: ATTENDING PHYSICIAN Family Medicine | DX: Z12.31 Encounter for screening mammogram for malignant neoplasm of breast (principal) | CPT/HCPCS: 77063; 77067 ==